=== PATIENT | female | born 1980 | race African-American/Black ===

== ENCOUNTER 2025-01-28 12:56 | Emergency (ER) | payer MEDICAID, OTHER ==
[~2025-01-28] VITALS: Ht 167.6 cm; Wt 85.0 kg
[2025-01-28 13:10] VITALS: O2SAT 99
[2025-01-28] MEDS: IBUPROFEN 600MG TABLET PO ONE (13:35)
[2025-01-28 14:22] LABS: BASOPHILS % 0.7 % (0.0-2.0); EOSINOPHILS % 1.8 % (0.0-5.0); HEMATOCRIT. 41.9 % (36.0-48.0); HEMOGLOBIN. 14.1 g/dL (12.0-16.0); LYMPHOCYTES % 43.7 % (20.0-50.0); MEAN PLATELET VOLUME 8.2 fl (7.4-10.4); MONOCYTES % 6.3 % (2.0-8.0); NEUTROPHILS % 47.5 % (40.0-76.0); PLATELET 301 x1000/uL (130-400); RED BLOOD CELL COUNT 4.79 mill/uL (4.2-5.4); RED CELL DISTRIBUTION WIDTH 13.1 % (11.6-14.6)
[2025-01-28 14:34] LABS: CREATININE 0.7 mg/dL (0.6-1.0)
[2025-01-28 14:35] LABS: UREA NITROGEN BLOOD 12 mg/dL (9-23)
[2025-01-28 14:36] LABS: ASPARTATE AMINOTRANSFERASE 18 IU/L (<34)
[2025-01-28 14:37] LABS: BILIRUBIN TOTAL 0.6 mg/dL (0.1-1.0); PROTEIN TOTAL 7.1 g/dL (6.0-8.3)
[2025-01-28 15:32] VITALS: BP 112/65; PULSE 59; RESP 16; TEMP 36.8; O2SAT 100
== END 2025-01-28 15:44 | disposition home or self-care (01) ==
LOC: ER 13:14
DX: M79.10 Myalgia, unspecified site (principal); G43.909 Migraine, unspecified, not intractable, without status migrainosus; I10 Essential (primary) hypertension; Z90.49 Acquired absence of other specified parts of digestive tract; Z90.710 Acquired absence of both cervix and uterus
CPT/HCPCS: 36415; 80053; 85025; 99283